=== PATIENT | male | born 1990 | race African-American/Black ===

== ENCOUNTER 2020-09-14 07:24 | Emergency (ER) | payer OTHER ==
[~2020-09-14] VITALS: Ht 190.5 cm; Wt 99.0 kg
[2020-09-14 07:35] VITALS: BP 129/73
[2020-09-14] MEDS: DIPH,PERTUSS(ACELL),TET VAC/PF 0.5 ML SYRINGE. VAX IM ONE (08:04)
--- NOTE | 2020-09-14 08:08 | PHYS DOC ---
Past History Past Medical History: No Pertinent History Past Surgical History: Other Additional Past Surgical Histo: Right arm Alcohol Use: None General Adult EDM: Chief Complaint: HAND PROBLEM HPI: HPI: Patient is a 29-year-old male who presented to ER for evaluation of hand injury. Patient said he was upset this morning and he punched the metal bunk bed out of frustration. Patient denies suicidal ideation. Patient denies homicidal ideation. He is not up-to-date on his tetanus vaccination status. Review of Systems: Review of Systems: Constitutional: Denies fever or chills Eyes: Denies change in visual acuity HENT: Denies nasal congestion or sore throat Respiratory: Denies cough or shortness of breath Cardiovascular: Denies chest pain or edema GI: Denies abdominal pain, nausea, vomiting, bloody stools or diarrhea : Denies dysuria Musculoskeletal: Positive for bilateral hand pain and abrasion Integument: Denies rash Neurologic: Denies headache, focal weakness or sensory changes Endocrine: Denies polyuria or polydipsia Lymphatic: Denies swollen glands Psychiatric: Denies depression or anxiety Current Medications: Current Meds: Current Medications Medications (Trade) Dose Ordered Sig/Los Start Time Stop Time Status Last Admin Dose Admin Diphtheria/ Pertussis/Tetanus Vacc (ADACEL TDap SYRINGE) 0.5 ml ONCE ONCE 09/14/20 08:15 09/14/20 08:16 Allergies: Allergies: Allergies Coded Allergies Type Severity Reaction Last Updated Verified shellfish derived Allergy Unknown 09/14/20 Yes Physical Exam: PE: Constitutional: Well developed, well nourished, no acute distress, non-toxic appearance. [] HENT: Normocephalic, atraumatic, bilateral external ears normal, oropharynx moist, no oral exudates, nose normal. [] Eyes: PERRLA, EOMI, conjunctiva normal, no discharge. [] Neck: Normal range of motion, no tenderness, supple, no stridor. [] Cardiovascular:Heart rate regular rhythm, no murmur [] Lungs & Thorax: Bilateral breath sounds clear to auscultation [] Abdomen: Bowel sounds normal, soft, no tenderness, no masses, no pulsatile masses. [] Skin: Warm, dry,superficial skin abrasion on extensor surface of hands. Back: No tenderness, no CVA tenderness. [] Extremities: Bilateral extensor surface of the hands with superficial skin abrasion, tender to palpation, no tendon injury. 2 cm laceration on the extensor surface of left middle finger at the proximal phalanx. No tendon injury, no active bleeding. Neurologic: Alert and oriented X 3, normal motor function, normal sensory function, no focal deficits noted. [] Psychologic: Affect normal, judgement normal, mood normal. [] Current Patient Data: Vital Signs: Vital Signs Date Time Temp Pulse Resp B/P (MAP) Pulse Ox O2 Delivery O2 Flow Rate FiO2 09/14/20 07:35 98.4 80 16 129/73 (91) 96 EKG: EKG: [] Radiology/Procedures: Radiology/Procedures: [][place] [address] IMAGING REPORT Signed PATIENT: MERNA HAYS ACCOUNT: [id number] : 1990 LOCATION: ER AGE: 29 SEX: M EXAM STATUS: REG ER ORD. PHYSICIAN: FRANTZ SHARP DO REASON: both hands injured, punched the bed rails this morning PROCEDURE: HAND BILAT 3V Three-view bilateral hand radiographs 09/14/2020 CLINICAL HISTORY: The patient punched bed rails earlier today with both hands . Hand pain. PA, lateral and oblique digital radiographs of both hands were obtained. The patient is post plate and screw fixation of old healed fracture of the mid diaphysis of the right fourth metacarpal. No acute fracture or dislocation of either hand is seen. IMPRESSION: No acute fracture or dislocation of either hand is seen. Electronically signed by: Valerio John MD (09/14/2020 8:30 AM) [id number] DICTATED AND SIGNED BY: VALERIO JOHN MD DATE: 09/14/20 0828 CC: PCP,NO; FRANTZ SHARP DO ~MTH0 0 Laceration Procedure: Location: left middle finger, extensor surface Anesthesia: 8 ml 2% plain lidocaine, digital block, webspace. total lenght of laceration: 2 cm Number of sutures:4 Suture Material: 3-0-nylon Technique: simple interruptous Patient tolerated procedure well. The wound was dressed with: triple antibiotic ointment, gauze Heart Score: Risk Factors: Risk Factors: DM, Current or recent (<one month) smoker, HTN, HLP, family history of CAD, obesity. Risk Scores: Score 0 - 3: 2.5% MACE over next 6 weeks - Discharge Home Score 4 - 6: 20.3% MACE over next 6 weeks - Admit for Clinical Observation Score 7 - 10: 72.7% MACE over next 6 weeks - Early Invasive Strategies Course & Med Decision Making: Course & Med Decision Making Pertinent Labs and Imaging studies reviewed. (See chart for details) [] Dragon Disclaimer: Dragon Disclaimer: This electronic medical record was generated, in whole or in part, using a voice recognition dictation system. Departure Departure: Impression: Primary Impression: Finger laceration Additional Impression: Hand abrasion Disposition: 01 DC HOME SELF CARE/HOMELESS Condition: STABLE Referrals: PCP,NO (PCP) follow up with your doctor in 10 days for sutures removal Patient Instructions: Diphtheria Toxoid; Tetanus Toxoid Adsorbed, DT, Td, Laceration Care, Adult Scripts Cephalexin (CEPHALEXIN) 500 Mg Capsule 1 CAP PO QID for laceration for 5 Days, #20 CAP Prov: FRANTZ SHARP DO 09/14/20 Naproxen Sodium (ANAPROX DS) 550 Mg Tablet 1 TAB PO BID PRN for PAIN for 15 Days, #30 TAB 0 Refills Prov: FRANTZ SHARP DO 09/14/20 FRANTZ SHARP DO Sep 14, 2020 08:08
--- NOTE | 2020-09-14 08:33 | RAD ---
Three-view bilateral hand radiographs 09/14/2020 CLINICAL HISTORY: The patient punched bed rails earlier today with both hands . Hand pain. PA, lateral and oblique digital radiographs of both hands were obtained. The patient is post plate an d screw fixation of old healed fracture of the mid diaphysis of the right fourth metacarpal. No acute fracture or dislocation of either hand is seen. IMPRESSION: No acute fracture or dislocation of either hand is seen. Electronically signed by: Valerio Foster MD (09/14/2020 8:30 AM) [id number]
[2020-09-14] MEDS ORDERED: NEOMY/BACITR/POLYMYXIN OINT PACKET. TP ONE (08:38)
[2020-09-14] MEDS ORDERED: CEPH500C PO (08:40)
[2020-09-14] MEDS ORDERED: NAPR-682 PO (08:40)
[2020-09-14] MEDS: NEOMY/BACITR/POLYMYXIN OINT PACKET. TP ONE (08:42)
== END 2020-09-14 09:05 | disposition home or self-care (01) ==
LOC: ER 07:24
DX: S61.213A Laceration without foreign body of left middle finger without damage to nail, initial encounter (principal); S60.511A Abrasion of right hand, initial encounter; Z91.013 Allergy to seafood; W22.8XXA Striking against or struck by other objects, initial encounter; Y93.89 Activity, other specified; Y92.89 Other specified places as the place of occurrence of the external cause; Y99.8 Other external cause status
CPT/HCPCS: 12001; 73130; 90471; 90715; 99283

== ENCOUNTER 2020-09-24 09:26 | Emergency (ER) | payer OTHER ==
[~2020-09-24] VITALS: Ht 190.5 cm; Wt 99.0 kg
[~2020-09-24 09:26] MED LIST: CEPH500C PO; NAPR-682 PO
[2020-09-24] MEDS ORDERED: AMOX1TAB58 PO (09:43)
--- NOTE | 2020-09-24 10:02 | PHYS DOC ---
Past History Past Medical History: No Pertinent History Past Surgical History: Other Additional Past Surgical Histo: Right arm Alcohol Use: None Adult General Chief Complaint Chief Complaint: SUTURE/STAPLE REMOVAL [facility] Patient is a 30-year-old male who presents to the emergency room to get his sutures removed from his finger. He states that it has healed well. He does state that one of his other wounds drained some white pimple-like pus earlier this week and is still painful. He has no other complaints. He denies any kind of fevers. He denies any redness of his hand or arm. Review of Systems Review of Systems Complete ROS is negative unless otherwise documented in [facility] Allergies Allergies Allergies Coded Allergies Type Severity Reaction Last Updated Verified shellfish derived Allergy Unknown 09/14/20 Yes Physical Exam Physical Exam General: Awake, alert, NAD. Well Nourished, well hydrated. Cooperative HEENT: Atraumatic, EOMI, PERRL, airway patent, moist oral mucosa Neck: Supple, trachea midline MSK: No obvious deformities Skin: Warm, dry, sutures in place in r middle finger, two wounds on hand appear to have granulation tissue and some surrounding erythema and mild swelling Neuro: A&O x3, speech NL, sensory and motor grossly intact, no focal deficits Psych: Normal affect, normal mood, not suicidal or homicidal EKG EKG [] Radiology/Procedures Radiology/Procedures [] Heart Score Risk Factors: Risk Factors: DM, Current or recent (<one month) smoker, HTN, HLP, family history of CAD, obesity. Risk Scores: Risk Factors: DM, Current or recent (<one month) smoker, HTN, HLP, family histo ry of CAD, obesity. Course & Med Decision Making Course & Med Decision Making Pertinent Labs and Imaging studies reviewed. (See chart for details) Patient is a 30-year-old male who presents to the emergency room to get his sutures removed. Sutures removed without difficulty. Wound is well-healed. 2 wounds are not closed on the hand do have surrounding erythema. We will place him on antibiotics for infection. He does not have any systemic signs of infection. Patient's test results and vitals while in the ED were fully reviewed and discussed with the patient. Patient is stable and at this time does not need admission to the hospital. We have discussed strict return precautions and the importance of following up with their Primary Care Physician. Patient stated understanding and was given an opportunity to ask any questions. Patient is in agreement with plan. Dragon Disclaimer Dragon Disclaimer This electronic medical record was generated, in whole or in part, using a voice recognition dictation system. Departure Departure: Impression: Primary Impression: Cellulitis Additional Impression: Visit for suture removal Disposition: 01 DC HOME SELF CARE/HOMELESS Condition: STABLE Patient Instructions: Cellulitis, [id number] Scripts Amoxicillin/Potassium Clav (AUGMENTIN 500-125 TABLET) 1 Each Tablet 1 TAB PO BID for infx for 7 Days, #14 TAB 0 Refills Prov: RODOLFO SALOMON MD 09/24/20 Problem Qualifiers RODOLFO SALOMON MD Sep 24, 2020 10:02
== END 2020-09-24 10:01 | disposition home or self-care (01) ==
LOC: ER 09:26
DX: S61.212D Laceration without foreign body of right middle finger without damage to nail, subsequent encounter (principal); L03.113 Cellulitis of right upper limb; Z91.013 Allergy to seafood; X58.XXXD Exposure to other specified factors, subsequent encounter
CPT/HCPCS: 99283